=== PATIENT | female | born 1990 | race Caucasian/White ===

== ENCOUNTER 2018-01-03 21:30 | Emergency (ER) | payer OTHER ==
--- NOTE | 2018-01-03 21:40 | ED Physician Documentation ---
PD HPI LOWER EXT INJURY - Stated complaint Stated Complaint: RT KNEE INJ - Chief complaint Chief Complaint: Ext Problem - History obtained from History obtained from: Patient - History of Present Illness PD HPI LOW EXT INJURY LOCATION: Right, Knee Type of injury: Fall Where injury occurred: Other (volleyball court) Timing - onset: Enter time (20:00), Today Timing - details: Abrupt onset Pain level now: 9 Improved by: Rest, Immobilization Worsened by: Moving, Palpating Associated symptoms: Swelling Recently seen: Not recently seen - Additional information Additional information: while playing volleyball tonight, landed on right knee on ground, sudden onset right knee pain. she has been able to weight-bear since the incident Review of Systems Musculoskeletal: reports: Joint pain, Joint swelling, Pain with weight bearing ( able to weight-bear, although this increases the pain) PD PAST MEDICAL HISTORY - Past Medical History Past Medical History: No - Past Surgical History Past Surgical History: No - Allergies Allergies/Adverse Reactions: Allergies Allergy/AdvReac Type Severity Reaction Status Date / Time No Known Drug Allergies Allergy Verified 01/03/18 21:38 - Social History Does the pt smoke?: No PD ED PE NORMAL - Vitals Vital signs reviewed: Yes - General General: Alert and oriented X 3, No acute distress, Well developed/nourished - Neuro Neuro: Alert and oriented X 3, No motor deficit, No sensory deficit PD ED PE EXPANDED - Extremities LILA LE visual: 1 - swelling (moderate, with erythema), tenderness (mild) Results - Vitals Vitals: Vital Signs - 24 hr 01/03/18 01/03/18 01/03/18 21:36 22:15 22:27 Temperature 36.6 C Heart Rate 89 Respiratory 16 17 17 Rate Blood Pressure 112/86 H O2 Saturation 100 01/03/18 01/03/18 23:19 23:29 Temperature 36.9 C Heart Rate 72 Respiratory 16 17 Rate Blood Pressure 114/79 O2 Saturation 100 Oxygen O2 Source Room air - Rads (name of study) right knee xrays Radiology: Prelim report reviewed, See rad report PD MEDICAL DECISION MAKING - ED course Complexity details: reviewed results, re-evaluated patient, considered differential, d/w patient Departure - Departure Disposition: 01 Home, Self Care Clinical Impression: Knee contusion Condition: Good Instructions: ED Bandage Elastic Wrap, ED Sprain Knee Follow-Up: Bronson Mason MD [Provider Admit Priv/Credential] - Discharge Date/Time: 01/03/18 23:31
--- NOTE | 2018-01-03 22:44 | XRAY Preliminary Report ---
Exam: XR KNEE 4 VIEW RT IMPRESSION: Unremarkable knee radiography. [facility] SITE ID: [id number]
--- NOTE | 2018-01-03 22:44 | XRAY Report ---
EXAM: RIGHT KNEE RADIOGRAPHY EXAM DATE: 01/03/2018 10:18 PM. CLINICAL HISTORY: R knee injury/swelling/redness. COMPARISON: None. TECHNIQUE: 4 views. FINDINGS: Bones: No acute fractures or suspicious bone lesions. Joints: No effusion. No subluxations. Soft Tissues: Unremarkable. IMPRESSION: Unremarkable knee radiography. [facility] Referring Provider Line: [phone] SITE ID: [id number]
[2018-01-03] MEDS ORDERED: IBUPROFEN 600 MG TABLET PO STA ×2 (23:16→23:19)
[2018-01-03 23:20] VITALS: BP 114/79
[2018-01-03] MEDS ORDERED: IBUPROFEN 800 MG TABLET PO STA (23:22)
== END 2018-01-03 23:31 | disposition home or self-care (01) ==
LOC: ED 21:30
DX: S80.01XA Contusion of right knee, initial encounter (principal); W18.30XA Fall on same level, unspecified, initial encounter; Y93.68 Activity, volleyball (beach) (court); Y92.318 Other athletic court as the place of occurrence of the external cause
CPT/HCPCS: 73564; 99283; A9270